=== PATIENT | female | born 1955 | race Caucasian/White ===

== ENCOUNTER 2017-10-16 10:12 | Day surgery (SDC) | payer OTHER ==
[2017-10-16] MEDS: NS 1,000 ML IV (11:18)
[2017-10-16] MEDS ORDERED: fentaNYL 100 MCG/2 ML INJECTION (J3010) As Ordered (12:27)
[2017-10-16] MEDS ORDERED: PROPOFOL 200 MG/20 ML VIAL As Ordered ×3 (12:38→12:50)
[2017-10-16] MEDS ORDERED: LIDOCAINE 2% INJ 100 MG/5 ML SDV (FOR ANES.) As Ordered (12:38)
== END 2017-10-16 13:56 | disposition home or self-care (01) ==
LOC: M OPP 10:12
DX: Z12.11 Encounter for screening for malignant neoplasm of colon (principal); Z86.010 Personal history of colon polyps; D12.2 Benign neoplasm of ascending colon; K31.7 Polyp of stomach and duodenum; R12 Heartburn; R10.13 Epigastric pain; I10 Essential (primary) hypertension; E78.5 Hyperlipidemia, unspecified; E03.9 Hypothyroidism, unspecified; K21.9 Gastro-esophageal reflux disease without esophagitis; G43.909 Migraine, unspecified, not intractable, without status migrainosus; Z78.0 Asymptomatic menopausal state; R06.83 Snoring; Z79.899 Other long term (current) drug therapy; Z80.1 Family history of malignant neoplasm of trachea, bronchus and lung; Z80.41 Family history of malignant neoplasm of ovary
CPT/HCPCS: 45385

== ENCOUNTER 2018-02-12 15:55 | Emergency (ER) | payer OTHER ==
[2018-02-12] MEDS: NS 1,000 ML IV (17:26)
[2018-02-12 17:32] LABS: BASO % 0.4 % (0.0-1.0); HEMATOCRIT 44.6 % (36.0-47.0); HEMOGLOBIN 15.6 g/dl (12.0-15.5); IMMATURE GRANULOCYTE % 0.3 % (0-3.0); LYMPH # 1.5 10^3/uL (1.5-4.5); LYMPH % 15.4 % (24.0-44.0); MEAN CORPUSCULAR HEMOGLOBIN 31.1 pg (27.0-33.0); MEAN CORPUSCULAR VOLUME 88.8 fl (80.0-96.0); MONO # 0.6 10^3/uL (0.0-0.8); MONO % 6.1 % (0.0-5.0); NEUTROPHILS # 7.6 10^3/uL (1.8-7.7); NEUTROPHILS % 77.8 % (36.0-66.0); PLATELET COUNT, AUTOMATED 291 10^3/uL (150-450); RED BLOOD COUNT 5.02 10^6/uL (4.00-5.40); RED CELL DISTRIBUTION WIDTH 12.8 % (11.5-14.5); WHITE BLOOD COUNT 9.8 10^3/uL (4.0-10.0)
[2018-02-12 18:04] LABS: LACTIC ACID SEPSIS PROTOCOL 1.4 MMOL/L (0.4-2.0)
[2018-02-12 18:12] LABS: ALBUMIN/GLOBULIN RATIO 1.03 (1.00-1.93); ALKALINE PHOSPHATASE 101 U/L (45-117); ALT/SGPT 24 U/L (12-78); ANION GAP 9 MEQ/L (8-16); AST/SGOT 16 U/L (7-37); BILIRUBIN,DIRECT 0.2 MG/DL (0.0-0.2); BILIRUBIN,TOTAL 0.6 MG/DL (0.2-1.0); BLOOD UREA NITROGEN 13 MG/DL (7-18); CARBON DIOXIDE LEVEL 30 MEQ/L (21-32); CHLORIDE LEVEL 99 MEQ/L (98-107); CREATININE FOR GFR 0.74 MG/DL (0.55-1.30); FREE T4 1.32 NG/DL (0.76-1.46); GLOMERULAR FILTRATION RATE > 60.0 (>45); GLUCOSE, FASTING 107 MG/DL (70-100); MAGNESIUM LEVEL 2.3 MG/DL (1.8-2.4); POTASSIUM SERUM 3.1 MEQ/L (3.5-5.1); SODIUM LEVEL 138 MEQ/L (136-145); TOTAL PROTEIN 7.9 GM/DL (6.4-8.2)
[2018-02-12] MEDS: POTASSIUM CHLORIDE 10 MEQ SR TABLET PO (19:07)
[2018-02-12] MEDS ORDERED: ONDANSETRON 4MG/2ML VIAL (J2405) As Ordered (19:13)
[2018-02-12] MEDS ORDERED: KETOROLAC 30 MG/ML VIAL (J1885) As Ordered (19:14)
[2018-02-12] MEDS: ONDANSETRON 4MG/2ML VIAL (J2405) IV (19:18)
[2018-02-12] MEDS: KETOROLAC 30 MG/ML VIAL (J1885) IV (19:18)
[2018-02-12 19:27] LABS: KETONE, URINE AUTO RFX TRACE mg/dL (NEGATIVE); MUCUS, URINE RFX SMALL (NEGATIVE); NITRITE, URINE AUTO RFX NEGATIVE (NEGATIVE); RBC, URINE AUTO RFX 4 /HPF (0-3); SPECIFIC GRAVITY UR AUTO RFX 1.006 (1.002-1.035); SQUAM EPITHELIAL CELL UR AURFX 12 /HPF (0-6)
[2018-02-12 19:28] LABS: LEUKOCYTE ESTERASE UR AUTO RFX 3+ (NEGATIVE); WBC, URINE AUTO RFX 21 /HPF (0-3)
[2018-02-12] MEDS: MORPHINE 4 MG/ML 1ML VIAL/SYRINGE (J2270) IV (20:24)
== END 2018-02-12 21:43 | disposition short-term general hospital (02) ==
LOC: M ED 15:55
DX: R51 Headache (principal); G93.89 Other specified disorders of brain; R11.2 Nausea with vomiting, unspecified; R42 Dizziness and giddiness; H53.149 Visual discomfort, unspecified; I10 Essential (primary) hypertension; K21.9 Gastro-esophageal reflux disease without esophagitis; Z79.899 Other long term (current) drug therapy
CPT/HCPCS: J2270

== ENCOUNTER → 2018-05-26 | Outpatient (CLI) | payer OTHER ==
[~2018-05-26] MED LIST: PROHANCE 279.3MG/ML 15ML VIAL (A9576) As Ordered
== END ==
LOC: M RAD 11:05
DX: D32.9 Benign neoplasm of meninges, unspecified (principal); I73.9 Peripheral vascular disease, unspecified; G93.89 Other specified disorders of brain; Z98.890 Other specified postprocedural states
CPT/HCPCS: A9576

== ENCOUNTER → 2019-01-21 | Outpatient (CLI) | payer OTHER ==
[~2019-01-21] MED LIST changes: +ATOR1TAB21 PO; +CETI10TA PO; +IBUP200C25 PO; +LEVO50TA5 PO; +LOSA50TA5 PO; +MONT10TA2 PO; +NEXI40CA PO; -PROHANCE 279.3MG/ML 15ML VIAL (A9576) As Ordered; +PROHANCE 279.3MG/ML 15ML VIAL (A9576) As Ordered ONE; +PROHANCE 279.3MG/ML 5ML VIAL (A9576) As Ordered ONE
--- NOTE | 2019-01-21 18:36 | REP ---
MR BRAIN WITHOUT AND WITH CONTRAST: HISTORY: Meningioma. CONTRAST: ProHance 17.2 mL. COMPARISON: MR 05/26/2018. The patient is status post right parietal temporal craniotomy and resection of a posterior parietal meningioma. A small amount of residual enhancing meningioma is present overlying the posterior right parietal lobe. The meningioma measures the 2 cm in transverse x 1 cm in AP x 2.1 cm in cephalocaudal dimensions and is unchanged in size compared to the previous study. There is extension into the superior sagittal sinus that is unchanged compared to the previous study. Increased signal intensity on T2 images is present in the posterior right temporal, parietal and occipital lobes. lobes. There is dilatation of the overlying cortical sulci, and atrium and occipital horn of the right lateral ventricle. This represents gliosis and encephalomalacia. Scattered punctate areas of increased signal intensity on T2-weighted images are present in the periventricular and subcortical white matter. This represents small vessel ischemic disease. There is no intraparenchymal hemorrhage, infarct or midline shift. A small developmental venous anomaly is present in the posterior right parietal lobe. The ventricular system and cortical sulci are dilated consistent with minimal volume loss. There is no extracerebral collection. The sinuses are clear. IMPRESSION: 1. The patient is status post resection of a right posterior parietal meningioma. A small residual meningioma is present overlying the posterior right parietal lobe. 2. Right temporoparietal occipital lobe encephalomalacia. 3. Minimal small vessel ischemic disease. 4. Minimal volume loss. Electronically Signed by Papito Peralta MD 01/22/2019 08:15 A
== END ==
LOC: M RAD 14:35
PROVIDERS: ATTEND Neurological Surgery
DX: D32.9 Benign neoplasm of meninges, unspecified (principal); G93.89 Other specified disorders of brain
CPT/HCPCS: 70553; A9576

== ENCOUNTER → 2019-06-22 | Outpatient (REF) | payer OTHER ==
[~2019-06-22] MED LIST changes: -PROHANCE 279.3MG/ML 15ML VIAL (A9576) As Ordered ONE; -PROHANCE 279.3MG/ML 5ML VIAL (A9576) As Ordered ONE
[2019-06-24 14:51] LABS: HPV HYBRID CAPTURE II Negative (Negative)
== END ==
LOC: M LAB REF 13:45
PROVIDERS: ATTEND Physician Assistant
DX: Z01.419 Encounter for gynecological examination (general) (routine) without abnormal findings (principal)

== ENCOUNTER → 2020-04-20 | Outpatient (CLI) | payer OTHER ==
[~2020-04-20] MED LIST changes: -MONT10TA2 PO; +MONT10TA4 PO; +PROHANCE 279.3MG/ML 15ML VIAL As Ordered ONE; +PROHANCE 279.3MG/ML 5ML VIAL As Ordered ONE
--- NOTE | 2020-04-20 12:14 | REPVR ---
PROCEDURE INFORMATION: Exam: MR Head Without and With Contrast Exam date and time: 04/20/2020 11:32 AM Age: 64 years old Clinical indication: Condition or disease; Brain tumor; Benign neoplasm of brain; Prior surgery; Surgery date: 6+ months; Surgery type: Tumor resection; Patient HX: F/u menigioma; Additional info: D32.9 benign neoplasm of meninges TECHNIQUE: Imaging protocol: MR of the head without and with intravenous contrast. Contrast material: PROHANCE; Contrast volume: 17 ml; Contrast route: INTRAVENOUS (IV); COMPARISON: MRI-Brain W/O FOLL BY WITH 01/21/2019 3:05 PM FINDINGS: Brain: Right parietooccipital encephalomalacia is again demonstrated. Right parietooccipital parasagittal T1 and T2 isointense enhancing extra-axial mass is again demonstrated consistent with residual/recurrent meningioma. This measures approximately 1.5 x 1.1 cm in the axial plane on image 17 of series 701, approximately 3.7 cm in craniocaudal extent on image 13 of series 801. Previous dimensions were 1.5 x 1.0 x 3.6 cm; considered stable considering differences in slice selection. No acute infarct identified on the diffusion-weighted imaging. The T2 weighted imaging demonstrates a few scattered foci of increased signal intensity in the deep white matter most likely representing chronic small vessel ischemic change. The postcontrast imaging again demonstrates a small right parietal developmental venous anomaly. The posterosuperior sagittal sinus is effaced or invaded by the right parasagittal meningioma, as before. Ventricles: Ex vacuo enlargement of the posterior right lateral ventricle. Bones/joints: Prior right craniotomy. Sinuses: Trace ethmoid and maxillary sinus mucosal thickening. Mastoid air cells: Normal as visualized. No mastoid effusion. Orbits: Unremarkable. Soft tissues: Unremarkable. Lymph nodes: Some mildly prominent suboccipital lymph nodes, stable. IMPRESSION: Stable residual/recurrent right parasagittal meningioma. Electronically signed by: [place] Kelly On 04/20/2020 12:13:47 PM
== END ==
LOC: M RAD 10:27
PROVIDERS: ATTEND Neurological Surgery
DX: D33.0 Benign neoplasm of brain, supratentorial (principal)
CPT/HCPCS: 70553; A9576

== ENCOUNTER 2021-02-16 12:36 | Day surgery (SDC) | payer OTHER ==
[~2021-02-16] VITALS: Ht 170.2 cm; Wt 88.0 kg
[~2021-02-16 12:36] MED LIST changes: +GABA-1171 PO; +LR 1,000 ML IV ONE; +MONT10TA10 PO; -MONT10TA4 PO; +PANT40TA29 PO; -PROHANCE 279.3MG/ML 15ML VIAL As Ordered ONE; -PROHANCE 279.3MG/ML 5ML VIAL As Ordered ONE; +SYNT150T PO
[2021-02-16] MEDS ORDERED: NS 1,000 ML IV ONE (13:10)
[2021-02-16] MEDS ORDERED: fentaNYL 100 MCG/2 ML INJECTION (J3010) As Ordered ONE (13:33)
[2021-02-16] MEDS ORDERED: LIDOCAINE 2% 100MG/5ML SDV (FOR ANES.) As Ordered ONE (13:33)
[2021-02-16] MEDS ORDERED: propofoL 200 MG/20 ML VIAL As Ordered ONE (13:33)
--- NOTE | 2021-02-16 13:54 | ROOR ---
Patient Name: Chloe Rondon Procedure Date: 02/16/2021 1:15 PM Date of : 1955 Age: 65 Room: [facility] Gender: Female Note Status: Finalized Procedure: Upper GI endoscopy Indications: Epigastric abdominal pain, Dyspepsia Providers: Robson Hester MD Referring MD: Maddy MARTINEZ DO Requesting Provider: Medicines: Monitored Anesthesia Care Complications: No immediate complications. Procedure: Pre-Anesthesia Assessment: - The heart rate, respiratory rate, oxygen saturations, blood pressure, adequacy of pulmonary ventilation, and response to care were monitored throughout the procedure. The Endoscope was introduced through the mouth, and advanced to the second part of duodenum. The upper GI endoscopy was accomplished without difficulty. The patient tolerated the procedure well. Findings: The esophagus was normal. The stomach was normal. The examined duodenum was normal. Impression: - Normal esophagus. - Normal stomach. - Normal examined duodenum. - No specimens collected. Recommendation: - Continue present medications. - Observe patient's clinical course. - Follow an antireflux regimen. Procedure Code(s): --- Professional --- 06658, Esophagogastroduodenoscopy, flexible, transoral; diagnostic, including collection of specimen(s) by brushing or washing, when performed (separate procedure) Diagnosis Code(s): --- Professional --- R10.13, Epigastric pain CPT copyright 2019 [employer]. All rights reserved. The codes documented in this report are preliminary and upon electric stove installer review may be revised to meet current compliance requirements. Robson Hester MD Robson Hester MD 02/16/2021 1:54:20 PM Electronically signed by Robson Hester MD Number of Addenda: 0 Note Initiated On: 02/16/2021 1:15 PM Estimated Blood Loss: Estimated blood loss: none.
--- NOTE | 2021-02-16 14:18 | ROOR ---
Patient Name: Chloe Rondon Procedure Date: 02/16/2021 1:44 PM Date of : 1955 Age: 65 Room: [facility] Gender: Female Note Status: Finalized Procedure: Colonoscopy Indications: High risk colon cancer surveillance: Personal history of colonic polyps Providers: Robson Hester MD Referring MD: Maddy MARTINEZ DO Requestcelestina Provider: Medicines: Monitored Anesthesia Care Complications: No immediate complications. Procedure: Pre-Anesthesia Assessment: - The heart rate, respiratory rate, oxygen saturations, blood pressure, adequacy of pulmonary ventilation, and response to care were monitored throughout the procedure. The Colonoscope was introduced through the anus and advanced to the cecum, identified by appendiceal orifice and ileocecal valve. The colonoscopy was performed without difficulty. The patient tolerated the procedure well. The quality of the bowel preparation was good. Findings: The perianal and digital rectal examinations were normal. A 2 cm long inverted appendix was seen at the appendiceal orifice. A 5 mm polyp was found in the splenic flexure. The polyp was sessile. The polyp was removed with a cold snare. Resection and retrieval were complete. Small Internal Hemorrhoids. The exam was otherwise without abnormality on direct and retroflexion views. 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 - One 5 mm polyp at the splenic flexure, removed with a cold snare. Resected and retrieved. - Small Internal Hemorrhoids. - The examination was otherwise normal on direct and retroflexion views. Recommendation: - Repeat colonoscopy in 5 years for surveillance. Procedure Code(s): --- Professional --- 61032, Colonoscopy, flexible; with removal of tumor(s), polyp(s), or other lesion(s) by snare technique Diagnosis Code(s): --- Professional --- K63.5, Polyp of colon D12.1, Benign neoplasm of appendix Z86.010, Personal history of colonic polyps CPT copyright 2019 [employer]. All rights reserved. The codes documented in this report are preliminary and upon movie actor review may be revised to meet current compliance requirements. Robson Hester MD Robson Hester MD 02/16/2021 2:18:12 PM Electronically signed by Robson Hester MD Number of Addenda: 0 Note Initiated On: 02/16/2021 1:44 PM Estimated Blood Loss: Estimated blood loss: none.
[2021-02-16 14:40] VITALS: BP 150/86
== END 2021-02-16 14:50 | disposition home or self-care (01) ==
LOC: M SDC 12:36
PROVIDERS: ATTEND Internal Medicine Gastroenterology
DX: Z12.11 Encounter for screening for malignant neoplasm of colon (principal); Z86.010 Personal history of colon polyps; K63.5 Polyp of colon; K64.8 Other hemorrhoids; R10.13 Epigastric pain; G47.9 Sleep disorder, unspecified; E03.9 Hypothyroidism, unspecified; E78.00 Pure hypercholesterolemia, unspecified; I10 Essential (primary) hypertension; Z87.891 Personal history of nicotine dependence; Z79.899 Other long term (current) drug therapy
CPT/HCPCS: 43235; 45385; 88305; J3010

== ENCOUNTER → 2021-04-23 | Outpatient (CLI) | payer OTHER ==
[~2021-04-23] MED LIST changes: -LR 1,000 ML IV ONE; +PROHANCE 279.3MG/ML 15ML VIAL ONE; +PROHANCE 279.3MG/ML 5ML VIAL ONE
== END ==
LOC: M PLAIMG 12:49
PROVIDERS: ATTEND Neurological Surgery
DX: D32.9 Benign neoplasm of meninges, unspecified (principal)

== ENCOUNTER → 2022-04-16 | Outpatient (CLI) | payer MEDICARE, OTHER ==
[~2022-04-16] MED LIST changes: -MONT10TA10 PO; +MONT10TA97 PO; -PROHANCE 279.3MG/ML 15ML VIAL ONE; -PROHANCE 279.3MG/ML 5ML VIAL ONE
[2022-04-16 13:30] LABS: BLOOD UREA NITROGEN 18 MG/DL (7-18); CREATININE FOR GFR 0.69 MG/DL (0.55-1.30); GLOMERULAR FILTRATION RATE > 60.0 (>45)
== END ==
LOC: M LAB 11:55
PROVIDERS: ATTEND Neurological Surgery
DX: D32.9 Benign neoplasm of meninges, unspecified (principal)

== ENCOUNTER → 2022-04-17 | Outpatient (CLI) | payer OTHER, MEDICARE ==
[~2022-04-17] MED LIST changes: +PROHANCE 279.3MG/ML 15ML VIAL As Ordered ONE; +PROHANCE 279.3MG/ML 5ML VIAL As Ordered ONE
== END ==
LOC: M RAD 12:24
PROVIDERS: ATTEND Neurological Surgery
DX: D32.9 Benign neoplasm of meninges, unspecified (principal)

== ENCOUNTER → 2023-04-28 | Outpatient (CLI) | payer MEDICARE, OTHER ==
[~2023-04-28] MED LIST changes: -PROHANCE 279.3MG/ML 15ML VIAL As Ordered ONE; -PROHANCE 279.3MG/ML 5ML VIAL As Ordered ONE
== END ==
LOC: M PLAIMG 13:34
PROVIDERS: ATTEND Nurse Practitioner Adult Health
DX: S46.201A Unspecified injury of muscle, fascia and tendon of other parts of biceps, right arm, initial encounter (principal); W18.30XA Fall on same level, unspecified, initial encounter; Y92.009 Unspecified place in unspecified non-institutional (private) residence as the place of occurrence of the external cause

== ENCOUNTER → 2023-05-27 | Outpatient (CLI) | payer MEDICARE, OTHER ==
[~2023-05-27] MED LIST changes: +PROHANCE 279.3MG/ML 15ML VIAL ONE; +PROHANCE 279.3MG/ML 5ML VIAL ONE
== END ==
LOC: M PLAIMG 12:27
PROVIDERS: ATTEND Neurological Surgery
DX: D32.9 Benign neoplasm of meninges, unspecified (principal)
CPT/HCPCS: 70553; A9576

== ENCOUNTER → 2024-06-28 | Outpatient (CLI) | payer MEDICARE, OTHER ==
[~2024-06-28] MED LIST changes: +PROHANCE 279.3MG/ML 15ML VIAL As Ordered ONE; -PROHANCE 279.3MG/ML 15ML VIAL ONE; +PROHANCE 279.3MG/ML 5ML VIAL As Ordered ONE; -PROHANCE 279.3MG/ML 5ML VIAL ONE
== END ==
LOC: M RAD 15:30
PROVIDERS: ATTEND Neurological Surgery
DX: F32.9 Major depressive disorder, single episode, unspecified (principal)
CPT/HCPCS: 70553; A9576

== ENCOUNTER → 2025-03-28 | Outpatient (CLI) | payer MEDICARE, OTHER ==
[~2025-03-28] MED LIST changes: -PROHANCE 279.3MG/ML 15ML VIAL As Ordered ONE; -PROHANCE 279.3MG/ML 5ML VIAL As Ordered ONE
== END ==
LOC: M WHC 08:24
PROVIDERS: ATTEND Nurse Practitioner Adult Health
DX: Z12.31 Encounter for screening mammogram for malignant neoplasm of breast (principal); R92.313 Mammographic fatty tissue density, bilateral breasts